=== PATIENT | male | born 1945 | race Caucasian/White ===

== ENCOUNTER 2025-04-07 22:49 | Inpatient (IN) | payer OTHER, SELFPAY ==
[2025-04-07] VITALS (10 sets, daily range): BP systolic 128–178; BP diastolic 83–147; BMI 27.3
[2025-04-07 17:18] LABS: Urine Character Clear (Clear)
[2025-04-07 17:29] LABS: Hematocrit 45.2 % (39.0-52.0); Hemoglobin 15.4 g/dL (13.0-18.0); Mean Corp Hgb Conc. 34.1 g/dL (33.0-37.0); Mean Corpuscular Volume 84.5 fL (80.0-94.0); Nucleated Red Blood Cells % 0 % (-); Red Cell Dist. Width 12.7 % (11.5-14.5)
[2025-04-07 17:32] LABS: Urine White Cell 0-2 /HPF (0-5)
[2025-04-07 17:33] LABS: Urine Red Blood Cell 0-2 /HPF (0-2)
[2025-04-07 17:37] LABS: ALT (SGPT) 18 U/L (0-50); AST (SGOT) 21 U/L (17-59); Albumin 4.3 g/dl (3.5-5.0); Alkaline Phosphatase 93 U/L (38-126); Blood Urea Nitrogen 20 mg/dl (9-20); Calcium 9.8 mg/dl (8.4-10.2); Carbon Dioxide 27 mmol/L (22-30); Chloride 107 mmol/L (98-107); Glucose 101 mg/dl (70-99); Lipase 179 U/L (23-300); Potassium 4.6 mmol/L (3.5-5.1); Sodium 141 mmol/L (135-145); Total Protein 7.2 g/dl (6.3-8.2); eGFR > 60.00
[2025-04-07 17:46] LABS: Platelet Count 180 10^3/uL (130-400)
--- NOTE | 2025-04-07 19:44 | ED.GENMED ---
History of Present Illness
<Shira Yadav NP - Last Filed: 04/08/25 00:27>
General
Chief Complaint: Abdominal Pain
Source: patient
Exam Limitations: none
Time Seen by Provider: 04/07/25 19:18
Nursing documentation reviewed up to this point in time: agreed with
History of Present Illness
History of Present Illness:
Patient to ED with complaint of right sided abd. pain. Pain started yesterday, continues today. Denies fever/chills,n/v/d. Brought to ED by spouse for eval.
Past History
<Shira Yadav NP - Last Filed: 04/08/25 00:27>
Past History
ED Past Medical History: Hypercholesterolemia, Psychiatric (Depression. PTSD) and Other ( Migraines, Prostatic hypertrophy)
ED Past Surgical History: Orthopedic (Bilateral knee surgery) and Other (partial prostatectomy )
Social History
Tobacco: Former smoker
Alcohol: Former
Drug: None
Personal:
Living: with family
Employment: Employed
Review of Systems
<Shira Yadav NP - Last Filed: 04/08/25 00:27>
Review of Systems
Allergies reviewed?: Yes
All Other Systems: ROS reviewed and negative except as documented in HPI and ROS
Constitutional: Reports no symptoms
EENT: Reports no symptoms
Respiratory: Reports no symptoms
Cardiac: Reports no symptoms
ABD/GI: Reports abdominal pain (right sided abd. pain)
: Reports no symptoms
Musculoskeletal: Reports no symptoms
Skin: Reports no symptoms
Neurological: Reports no symptoms
Psychiatric: Reports no symptoms
Phy Exam
<Shira Yadav NP - Last Filed: 04/08/25 00:27>
General Physical Exam
General Presentation: mild distress
General age: appears stated age
General Skin: warm and dry
General Habitus: normal
General Mental: alert
Cardiovascular Exam
Cardiovascular Exam: irregularly irregular
Pulmonary Exam
Pulmonary Exam: lungs clear, no respiratory distress and chest non tender
Gastrointestinal Exam
Gastrointestinal Exam: normal bowel sounds, non tender (No tenderness to palpation. States 'pain is inside'), soft, no organomegaly, no pulsatile mass and non distended
Musculoskeletal Exam
Musculoskeletal Exam: full ROM and neuro vasc intact
Skin Exam
Skin Exam: normal color, warm/dry and no rash
Psychiatric Exam
Psychiatric Exam: normal mood/affect
Course
<Shira Yadav NP - Last Filed: 04/08/25 00:27>
Orders/Labs/Results
Orders:
Orders
04/07/25 16:54
Complete Blood Count/With Diff Urgent
Comprehensive Metabolic Panel Urgent
Free T4 Urgent
Lactic Acid Urgent
Lipase Urgent
Magnesium Urgent
Comment: ADD ON
TSH Reflex To Free T4 Urgent
Comment: ADD ON
Urinalysis Reflex To Culture Urgent
Date Specimen was Collected: 04/07/25
Time Specimen was Collected: 16:44
Urine Microscopic Reflex Cult Urgent
Urine Culture Urgent
BECCA Source: U
Specimen Description:
Date Specimen was Collected: 04/07/25
Time Specimen was Collected: 16:44
04/07/25 19:35
CT Abd/pel Without Iv Or Oral Urgent
Comment:
Reason For Exam: RLQ pain
04/07/25 19:45
Add On- LAB Urgent
Tests Added?: magnesium
04/07/25 19:47
Electrocardiogram (*1) Urgent
Reason for Study: Palpitations
04/07/25 19:48
EKG- Treatment ONCE
04/07/25 20:47
Diltiazem HCl [Cardizem] 10 mg IV NOW STA
04/07/25 21:00
Diltiazem 125 mg/125 ml Nss [Cardizem] 125 mg in 125 ml IV PER PROTOCOL
Initial dose in mg/hr, then titrate:: 10
Titrate to keep:: Heart rate 80-100 bpm
Titrate by mg/hr:: 5 mg/hr
Frequency of titrations (minutes):: 15
Maximum dose in mg/hr:: 15
04/07/25 21:24
CR Chest - 2 Views Urgent
Comment:
Reason For Exam: cough
04/07/25 21:26
Azithromycin 500 mg/250 ml [Zithromax Infusion] 500 mg in 250 ml IV NOW
CefTRIAXone [Rocephin] 1,000 mg IV NOW STA
04/07/25 21:48
Add On- LAB Urgent
Tests Added?: TSH w/Reflex
04/07/25 22:10
Admit/Transfer Patient As Directed
Co-Sign Provider:
Level of Care: Inpatient admission
Assign to:: IMU- Intermediate Care
Physician / Group: Htay
Diagnosis: Pneumonia, A-Fib
Reason for Hospitalization: IV abx, Cardizem drip
Expected length of stay greater than two midnights?: Yes
ELOS- Estimated Length of Stay in days: 3
I certify the patient meets the requirements for IP care: Yes
PRN Pain Medication Management As Directed
May give lesser potent ordered pain med per pt: Yes
preference::
Protocol:: Medication orders for pain may be administered in a
manner that supports deferring to patient preference
when the pt is:
- Requesting an ordered lesser potent pain medication.
Least to most potent pain medications are defined
as: acetaminophen < NSAID < tramadol < opioids
(morphine, oxycodone, hydromorphone).
- Requesting a lesser dose of the same medication IF
ORDERED.
- Requesting a less intrusive route of administration
if both routes are prescribed by the provider (PO <
IV).
04/07/25 22:16
Code Status As Directed
Resuscitation Status: Full Code
04/07/25 22:22
Apixaban [Eliquis] 5 mg PO NOW STA
Abnormal Lab Results
04/07/25
16:54
WBC 10.9 H 10^3/uL
(4.8-10.8)
Absolute Neuts (auto) 8.1 H 10^3/uL
(1.4-6.5)
Absolute Monos (auto) 1.1 H 10^3/uL
(0.1-0.6)
Lymphocytes % 15.5 L %
(20.5-51.1)
Monocytes % 9.6 H %
(1.7-9.3)
Glucose 101 H mg/dl
(70-99)
TSH (Reflex) < 0.02 L uIU/ml
(0.47-4.68)
Urine Ketones 2+ A
(Negative)
Leukocyte Esterase Rfl 1+ A
(Negative)
Urine Bacteria (Reflex) Few A
(Negative)
Urine Albumin (Reflex) 2+ A
(Neg - Trace)
04/07/25 16:54
04/07/25 16:54
Vital Signs
Initial and Last Documented VS:
Initial Vital Signs
Temp Pulse Resp BP Pulse Ox
98.7 F 115 20 178/88 97
04/07/25 16:42 04/07/25 16:42 04/07/25 16:42 04/07/25 16:42 04/07/25 16:42
Last Documented Vital Signs
Temp Pulse Resp BP Pulse Ox
99.0 F 97 36 128/83 97
04/07/25 19:36 04/07/25 22:45 04/07/25 22:45 04/07/25 22:35 04/07/25 19:44
<Toribio Goncalves, DO - Last Filed: 04/07/25 22:03>
Orders/Labs/Results
Orders:
Orders
04/07/25 16:54
Complete Blood Count/With Diff Urgent
Comprehensive Metabolic Panel Urgent
Free T4 Urgent
Lactic Acid Urgent
Lipase Urgent
Magnesium Urgent
Comment: ADD ON
TSH Reflex To Free T4 Urgent
Comment: ADD ON
Urinalysis Reflex To Culture Urgent
Date Specimen was Collected: 04/07/25
Time Specimen was Collected: 16:44
Urine Microscopic Reflex Cult Urgent
Urine Culture Urgent
BECCA Source: U
Specimen Description:
Date Specimen was Collected: 04/07/25
Time Specimen was Collected: 16:44
04/07/25 19:35
CT Abd/pel Without Iv Or Oral Urgent
Comment:
Reason For Exam: RLQ pain
04/07/25 19:45
Add On- LAB Urgent
Tests Added?: magnesium
04/07/25 19:47
Electrocardiogram (*1) Urgent
Reason for Study: Palpitations
04/07/25 19:48
EKG- Treatment ONCE
04/07/25 20:47
Diltiazem HCl [Cardizem] 10 mg IV NOW STA
04/07/25 21:00
Diltiazem 125 mg/125 ml Nss [Cardizem] 125 mg in 125 ml IV PER PROTOCOL
Initial dose in mg/hr, then titrate:: 10
Titrate to keep:: Heart rate 80-100 bpm
Titrate by mg/hr:: 5 mg/hr
Frequency of titrations (minutes):: 15
Maximum dose in mg/hr:: 15
10/01/25 21:24
CR Chest - 2 Views Urgent
Comment:
Reason For Exam: cough
04/07/25 21:26
Azithromycin 500 mg/250 ml [Zithromax Infusion] 500 mg in 250 ml IV NOW
CefTRIAXone [Rocephin] 1,000 mg IV NOW STA
04/07/25 21:48
Add On- LAB Urgent
Tests Added?: TSH w/Reflex
04/07/25 22:10
Admit/Transfer Patient As Directed
Co-Sign Provider:
Level of Care: Inpatient admission
Assign to:: IMU- Intermediate Care
Physician / Group: Lesleyy
Diagnosis: Pneumonia, A-Fib
Reason for Hospitalization: IV abx, Cardizem drip
Expected length of stay greater than two midnights?: Yes
ELOS- Estimated Length of Stay in days: 3
I certify the patient meets the requirements for IP care: Yes
PRN Pain Medication Management As Directed
May give lesser potent ordered pain med per pt: Yes
preference::
Protocol:: Medication orders for pain may be administered in a
manner that supports deferring to patient preference
when the pt is:
- Requesting an ordered lesser potent pain medication.
Least to most potent pain medications are defined
as: acetaminophen < NSAID < tramadol < opioids
(morphine, oxycodone, hydromorphone).
- Requesting a lesser dose of the same medication IF
ORDERED.
- Requesting a less intrusive route of administration
if both routes are prescribed by the provider (PO <
IV).
04/07/25 22:16
Code Status As Directed
Resuscitation Status: Full Code
04/07/25 22:22
Apixaban [Eliquis] 5 mg PO NOW STA
Abnormal Lab Results
04/07/25
16:54
WBC 10.9 H 10^3/uL
(4.8-10.8)
Absolute Neuts (auto) 8.1 H 10^3/uL
(1.4-6.5)
Absolute Monos (auto) 1.1 H 10^3/uL
(0.1-0.6)
Lymphocytes % 15.5 L %
(20.5-51.1)
Monocytes % 9.6 H %
(1.7-9.3)
Glucose 101 H mg/dl
(70-99)
TSH (Reflex) < 0.02 L uIU/ml
(0.47-4.68)
Urine Ketones 2+ A
(Negative)
Leukocyte Esterase Rfl 1+ A
(Negative)
Urine Bacteria (Reflex) Few A
(Negative)
Urine Albumin (Reflex) 2+ A
(Neg - Trace)
04/07/25 16:54
04/07/25 16:54
Vital Signs
Initial and Last Documented VS:
Initial Vital Signs
Temp Pulse Resp BP Pulse Ox
98.7 F 115 20 178/88 97
04/07/25 16:42 04/07/25 16:42 04/07/25 16:42 04/07/25 16:42 04/07/25 16:42
Last Documented Vital Signs
Temp Pulse Resp BP Pulse Ox
99.0 F 97 36 128/83 97
04/07/25 19:36 04/07/25 22:45 04/07/25 22:45 04/07/25 22:35 04/07/25 19:44
<Shira Yadav NP - Last Filed: 04/08/25 00:27>
*Radiology
Radiology exam reviewed: radiology read reviewed
*Pulse Oximetry
SaO2: 97
Oxygen Mode of Delivery: Room air
Patient hypoxic: no
<Toribio Goncalves DO - Last Filed: 04/07/25 22:03>
*Critical Care Note
Total Time (30-74mins, 75-104mins- exclusive of procedures): 32
comment:
Critical care statement: A total of 32 minutes of critical care time was provided for this patient. This includes management of unstable vital signs, evaluation of the patient at bedside, reviewing the patient's pertinent medical records, discussion
with consultants, review of old EKGs and review of pertinent medical records. This time with separate from time utilized to perform the aforementioned documented procedures
<Shira Yadav TELEPHONE INFORMATION CLERK - Last Filed: 04/08/25 00:27>
Update Note
Update Note:
Patient to ED with right sided abd. pain Pain started yesterday, No pain to palpation, states pain is 'inside'. On arrival to ED, HR noted to be irregular and in the 140's. EKG confirms Afib. He reports afib approx 2 years ago. He was placed
on cardizem and eliquis at that time. He reports he followed up with cardiology initially but then stopped. He is no longer taking cardizem or eliquis. Unknown when this episode of afib started. He denies SOB or cough. Given 10mg IV cardizem
one time dose and then placed on cardizem drip. ABd. CT report reviewed. No abdminal findings. Ground glass opacity RLL concerning for pneumonia. Discussed findings with him. Will start ceftriaxone and azithromycin, admit to hospitalist. Case
discussed with Dr. Goncalves who also evaluated this patient. He [facility] findings and plan.
ED Attending Note
<Shira Yadav NP - Last Filed: 04/08/25 00:27>
-
Portions of this chart may have been created with voice recognition software.� Occasional wrong word or��sound alike� substitutions may have occurred due to the inherent limitations of voice recognition software.
<Toribio Goncalves DO - Last Filed: 04/07/25 22:03>
ED Attending Note
Patient seen and examined by attending physician: Yes
ED Attending Note:
I reviewed and agree with history and treatment plan by Shira Yadav. My exam revealed 79-year-old male with irregular heart rhythm, initially tachycardic. Now controlled with diltiazem. Chest x-ray and CT abdomen pelvis consistent with right
lower lung pneumonia. Treat with Rocephin and azithromycin admit to hospitalist.
Discharge Plan
Departure
Patient Disposition: Admit
Date of Disposition: 04/07/25
Time of Disposition: 21:39
Presentation/result/management discussed w/ accepting MD/DO: Hospitalist
Patient with high blood pressure during this ER visit?: No
Condition: Fair
Covid-19: Not Applicable
Discharge Problem:
A-fib, Pneumonia
Interventions
Interventions:
*Risk Screen - Suicide Last Done: 04/07/25 19:39
*General Assessment Last Done: 04/07/25 16:42
*Neglect/Abuse Screening Last Done: 04/07/25 19:39
*ED- Fall Risk Assessment Last Done: 04/07/25 19:39
*ED COVID-19 Vaccine History Last Done: 04/07/25 19:39
*ED Influenza Vaccine History Last Done: 04/07/25 19:39
NB-Uqjgfb-Eniqlksdgo Assessment Last Done: 04/07/25 19:37
[2025-04-07 20:56] LABS: Magnesium 1.8 mg/dl (1.6-2.3)
[2025-04-07] MEDS: CARDIZEM 125 IV (21:03)
[2025-04-07] MEDS: CARDIZEM 10 MG IV (21:03)
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
--- NOTE | 2025-04-07 21:45 | W.PN.UPDATE ---
Update Note
Progress Note Update
This note serves as an addendum to the H&P by regional office coordinator EVELIA�
Alexandra DIETERICK
HPI�
77M Former smoker, Former ETOH use disorder HX Prx AF, HLD, hyperthyroidism, BPH s/p partial prostatectomy reduction cystoplasty , depression /PTST seen at ER
- BiB spouse
- acute right sided abd. pain started yesterday, continues today.
- Denies fever/chills,n/v/d.
Non compliance with Eliquis , Methimazole for months
Relevant VS
04/07/25
16:42 04/07/25
19:35
Temp 98.7 F
Pulse 115 141
Resp Rate 20
Blood pressure 178/88
SaO2 97
Oxygen Mode of Delivery Room air
PE
GEN: No distress, awake, Ox3
HEENT: supple, anicteric, mmm
LUNGS: CTA, no wheezes/rales
CV: Irreg irreg, S1/S2, no murmur, rubs or gallops
ABD: soft, BS+, NT/ND
EXT: No edema, clubbing or cyanosis
NEURO: Gross non-focal
SKIN: No rash, warm, dry, pink
Relevant Data�
04/07/25
16:54
WBC 10.9 H
Creatinine 1.0
eGFR > 60.00
04/07/25
16:54
Urine Nitrite (Reflex) Negative
Urine RBC 0-2
Urine WBC (Reflex) 0-2
Pending EKG
Pending CXR
CT AP Without Iv Or Oral
- Mild pneumonia in the posterior right lung base with small effusion.
- The appendix is normal.
- Mild colonic fecal burden.
- No bowel obstruction.
- No obstructive uropathy.
01/28/2023 TTE:
EF 50-55%, mlid cLVH, mild AI, mildly dilated Ao root. Ao Sinus Diam 3.5 cm, Ao STJ Diameter 3.8 cm, Asc Ao Diam 4.2 cm -the aortic arch is normal in caliber.
Last hospitalist admission: Date of Admission: 01/27/23 - Date of Discharge: 01/28/23
DC DX: Hyperthyroidism, Atrial Fibrillation Rapid Ventricular Rate, Hematuria, Urinary Tract Infection due to Pseudomonas
ASSESSMENT & PLAN
Non compliance with Eliquis , Methimazole for months
- He decided to stop taking it for few months
- Case I dw patient and spouse - both are already decided to resume Eliquis, Methimazole
PNA @ post R Lung base plus SIRS ( WCC > 10, HR > 90)
Presumed sepsis due to presumed CAP
- c/w IV CFTZ and PO Doxy
- await CXR
- F/U T and WCC
Fast AF in setting of sepsis
HX Prx AF - on Eliquis and PO Diltiazem
- Resume PO Eliquis
- on Diltiazem gtt
- DCA card consult
Hyperthyroid
- Non adherence to Methimazole - will resume
- TSH pending
DVT Px: chr Eliquis
Full code
Ip TLM
[2025-04-07] MEDS: ELIQUIS 5 MG PO (22:40)
[2025-04-07] MEDS: ROCEPHIN 1000 MG IV (23:21)
[2025-04-07] MEDS: ZITHROMAX INFUSION 250 IV (23:32)
[2025-04-08] VITALS (12 sets, daily range): BP systolic 121–166; BP diastolic 78–101; BMI 29.1; BMI 26.4
[2025-04-08] MEDS: TYLENOL 650 MG PO ×4 (02:59→21:00)
[2025-04-08 07:04] LABS: Blood Urea Nitrogen 18 mg/dl (9-20); Calcium 9.1 mg/dl (8.4-10.2); Carbon Dioxide 24 mmol/L (22-30); Chloride 107 mmol/L (98-107); Estimated Creatinine Clearance 68 ml/min; Glucose 133 mg/dl (70-99); Magnesium 1.9 mg/dl (1.6-2.3); Potassium 4.5 mmol/L (3.5-5.1); Sodium 136 mmol/L (135-145); eGFR > 60.00
[2025-04-08 07:10] LABS: Hematocrit 40.9 % (39.0-52.0); Hemoglobin 14.1 g/dL (13.0-18.0); Mean Corp Hgb Conc. 34.5 g/dL (33.0-37.0); Mean Corpuscular Volume 85.6 fL (80.0-94.0); Platelet Count 159 10^3/uL (130-400); Red Cell Dist. Width 12.7 % (11.5-14.5)
[2025-04-08] MEDS: MUCINEX 600 MG PO ×2 (08:23→21:01)
[2025-04-08] MEDS: VIBRAMYCIN 100 MG PO ×2 (08:24→21:01)
[2025-04-08] MEDS: MIRALAX 17 GRAMS PO (08:25)
[2025-04-08] MEDS: TAPAZOLE 5 MG PO (08:25)
[2025-04-08] MEDS: CARDIZEM CD 120 MG PO (08:29)
[2025-04-08] MEDS: ELIQUIS 5 MG PO ×2 (08:29→21:01)
--- NOTE | 2025-04-08 09:00 | CON.CAR ---
Addendum entered and electronically signed by Giovanni Ontiveros MD 04/08/25 18:23:
I saw and examined the patient.
The Start Up Specialist's note was reviewed and I agree with the note.
Comment:
GEN: No distress, awake, Ox3
HEENT: supple, anicteric, mmm
LUNGS: CTA, no wheezes/rales
CV: Irreg, S1/S2, 1/6 syst LSB, no gallop
ABD: soft, BS+, NT/ND
EXT: No edema
NEURO: Gross non-focal
SKIN: No rash
PLan:
79-year-old male well-known to me with past medical history of hypertension, paroxysmal atrial fibrillation, hyperlipidemia who was last seen in the office in 2022 presents with right sided abdominal pains and possible pneumonia with recurrent
atrial fibrillation with rapid ventricular rate. In the past the patient had declined Eliquis, metoprolol and had also recently stopped his methimazole for hyperthyroidism.
I had a lengthy discussion with him regarding his medications and symptoms. He is now agreeable to restart the methimazole, Toprol, and Eliquis.
Continue antibiotics for possible pneumonia.
We will repeat his echocardiogram reevaluate his LVEF and valves.
We discussed the importance of compliance and risk of stroke if he stops his medication.
Original Note:
Consultation
Consultation Request
Date/Time Consultation Performed: 04/08/25
Requesting Provider: Dr. Garcia
Performing Provider: Beverly Lancaster PA-C for Dr. Ontiveros
Reason for Consultation: afib
Medical History
-
Chief Complaint: abd pain
History of Present Illness:
Patient is an 79-year-old male with past medical history of hyperthyroidism, hypertension, hyperlipidemia, paroxysmal atrial fibrillation who historically has not wanted any medications. He presented to ER with complaints of right sided abdominal
pain. He underwent CT of the abdomen and pelvis which did not show any acute abnormalities. He was noted to be in A-fib with RVR and on checking his thyroid function is noted to be hyperthyroid. There was also concern by imaging for possible
pneumonia. Cardiology consulted for evaluation and treatment of atrial fibrillation with RVR. He denies palpitations and states he has never been able to tell when he is in A-fib
PMH:
Paroxysmal atrial fibrillation
Hyperthyroidism
Hypertension
Hyperlipidemia
Medication noncompliance
Past Medical History
Past Medical History: Other (in HPI)
Social History
Tobacco: Non-Smoker
Alcohol: None
Personal:
Living: With Family
Employment: Retired
Family History
Family History: Reviewed & Not Pertinent
Allergies / Home Medications
Allergy/AdvReac Type Severity Reaction Status Date / Time
No Known Allergies Allergy Verified 04/07/25 16:42
�Medication �Instructions �Recorded �Confirmed �Type
No Meds [No Current Medications] 04/07/25 04/07/25 History
Review of Systems
-
History Source: Patient
All other systems: Negative unless noted
Physical Exam
Vital Signs
Temp Pulse Resp BP Pulse Ox
98.5 F 66 26 121/85 99
04/08/25 01:47 04/08/25 06:00 04/08/25 06:00 04/08/25 06:00 04/08/25 06:25
Lab Results
04/08/25 06:20
04/08/25 06:20
Physical Exam
General: Other (Nauseous)
HEENT: Normocephalic, Anicteric and Moist Mucous Membranes
Respiratory: Clear and Non Labored Respirations
Cardiac: S1/S2 and Irregular Rhythm
GI: Soft, Non Tender, Non Distended and Normal Bowel Sounds
Musculoskeletal: No Clubbing, No Cyanosis and No Edema
Skin: Warm and Dry
Neuro: AO x 3
Impression / Plan
-
Primary Sugar Trucker: Dr. Ontiveros, last seen 2022
Assessment:
Presentation with R abd pain
Nausea/dry heaving, suspected med related
Paroxysmal atrial fibrillation
Hyperthyroidism
Hypertension
Hyperlipidemia
Medication noncompliance
Echo 01/24/2023: EF 50 to 55%, mild concentric LVH, mild AR, mildly dilated aortic root
Plan:
- Patient presents with right-sided abdominal pain, etiology unknown
- This morning main complaint is nausea/dry heaving which is suspected to be medication related, as has happened twice after taking meds per patient. He reports he also has not eaten much which may be contributing. QTc stable for antiemetics if
needed by review of EKG
- found to be in afib with RVR, unknown duration as asymptomatic. suspected triggered by untreated hyperthyroidism
- discussed importance of medication compliance moving forward
- presently back on po cardizem and eliquis
- plan for rate control strategy until underlying hyperthyroid state treated, on methimazole
- we also briefly discussed ablation as a possibility if patient is resistent to [facility] medical therapy for afib
- chest imaging reviewed, with possible PNA and trace-small R pleural effusion. check proBNP in setting of rapid afib of unknown duration
- check echo, last from 2022 as above
- d/w nursing
Data Reviewed
-
EKG: Tracing Personally Visualized and interpreted
Radiology: Report Reviewed by me
CT Scan: Report Reviewed by me
Medical Tests (Nuc Med, Echo etc): Report Reviewed by me
Labs: Labs Reviewed by me
Old Records: Reviewed
--- NOTE | 2025-04-08 09:30 | W.PN.HOSP.TC ---
Today's Communication/Plan
-
plan reviewed with attending
Downgrade to tele
continue abx
bowel regimen
speech eval
restart home eliquis, methimazole. PO diltiazem
Assessment / Plan
Assessment / Plan
79yoM PMH hyperthyroidsim, paroxysmal afib, BPH s/p prostatectomy, MDD/PTSD presenting with pneumonia causing pain, nausea, vomiting.
AFVSS. Rate controlled afib, transitioned diltiazem drip to PO, pt vomited morning meds so unsure status. TSH low, T4 elevated- known hyperthyroidism, pt reports nonadherence to medications. Known afib, pt stopped taking eliquis. Now on abx.
Cardiology consulted. UC pending, sputum culture pending. Urianting appropraitely denying pain. Pt reports continued pain 'under the right ribs.' Constipation- pt reports BM but smaller than usual. Leukocytosis WBC 12.3. CT: RLL pneumonia
Discussed w patient important of medication adherence. He stated he spoke with his who had a van discussion regarding his future adherence. Continue monitoring pneumonia and managing pain. Restart home medications.
Downgrade to tele
#pneumonia
- Ceftriaxone, azithromycin transtioned to doxycylcine
- RLL on CT
- Spitting up phelgm
#nausea and vomiting
- Concern swallowing phlegm
- Swallowing eval
- Zofran
#Hyperthyroidism
- restarted home methimazole pt was not taking
#Paroxsymal afib
- transition to PO diltiazem
- eliquis restarted
- cardiology following
#constipation
- methimazole started, might be associated
- bowel reigmen started
Anticipated Discharge: Within 24 hours
Subjective/Interval History
-
Date of Service: April 08, 2025
79yoM PMH hyperthyroidism, paroxysmal afib, BPH s/p prostatectomy, MDD/ PTSD presenting with abdominal pain, nausea, vomiting.
He reports nausea, constipation, vomiting last night, none this morning until after taking meds. Pt reports pain under his R rib, sharp pains with deep breaths. He is hunched over, reporting moving/looking up makes pain worse. Pt reports having this
pain for almost a month, ignoring it until it became this bad. He has constipation, having BM but smaller than usual.
Pt reports stopping his meds after each hospitalization after a few months since he perceives himself to be healthy and a 'strong man' that does not need to take medications for afib, hyperthyroidism. He stated his had a discussion with him
already regarding this behavior.
Former smoker and alcohol use.
Objective Data
-
Labs:
Laboratory Results
04/08/25
06:20
WBC 12.3 H
Hgb 14.1
Hct 40.9
Plt Count 159
Sodium 136
Potassium 4.5
Chloride 107
Carbon Dioxide 24
BUN 18
Creatinine 0.9
Glucose 133 H
Calcium 9.1
Vital Signs:
Vital Signs
Temp Pulse Resp BP Pulse Ox
98.7 F 66 26 121/85 99
04/08/25 07:02 04/08/25 06:00 04/08/25 06:00 04/08/25 06:00 04/08/25 06:25
Physical Exam
-
General: Well Developed, Well Nourished and Pain (hunched over)
HEENT: Normocephalic, Atraumatic, Moist Mucous Membranes and Anicteric
Respiratory: Non Labored Respirations and Decreased Breath Sounds (R side)
Cardiac: S1/S2 and Irregular Rhythm (afib)
GI: Soft, Nontender and Nondistended
Musculoskeletal: Edema, Right Lower Extrem (cold, blue, edematous, pt reports at baseline since ankle surgery 60 years ago)
--- NOTE | 2025-04-08 12:59 | CM ---
Met with patient at bedside
IMM benefit explained; form dated/timed @ 1250
Pharmacy verified; [facility] @ [address] [facility]
Lives w/ ; multilevel home; no steps to enter; 12 steps between floors; railing on stairs
PLOF: was independent with ambulation, stairs, and ADLs; drives; works display department manager; no DME
NO SNF or Home Health utilization history
will transport home
Plan: Discharge to home; no needs anticipated
--- NOTE | 2025-04-08 13:27 | PTCARENOTE ---
pt transferred on tele to 415.2. Report given to LUCIEN Lockhart. all belongings with patient.
[2025-04-08] MEDS: LR 1000 IV (17:37)
[2025-04-08] MEDS: STERILE WATER FOR INJECTION 10 ML IV (23:11)
[2025-04-08] MEDS: ROCEPHIN 1000 MG IV (23:12)
[2025-04-09 02:51] VITALS: BP 152/91
[2025-04-09] MEDS: LR 1000 IV ×2 (04:16→20:28)
--- NOTE | 2025-04-09 07:21 | W.PN.HOSP.TC ---
Today's Communication/Plan
-
Plan reviewed with attending
Pulm consult
Consider broadening abx, worsening leukocytosis, hemoptysis
Assessment / Plan
Assessment / Plan
79yoM PMH hyperthyroidsim, paroxysmal afib, BPH s/p prostatectomy, MDD/PTSD presenting with pneumonia causing pain, nausea, vomiting.
AFVSS. Rate controlled afib, transitioned diltiazem drip to PO, pt vomited morning meds so unsure status. TSH low, T4 elevated- known hyperthyroidism, pt reports nonadherence to medications. Known afib, pt stopped taking eliquis. Now on abx.
Cardiology consulted. UC pending, sputum culture pending. Urinating appropriately denying pain. Pt reports continued pain 'under the right ribs.' Constipation- pt reports BM but smaller than usual. Leukocytosis WBC 12.3. CT: RLL pneumonia
Discussed w patient important of medication adherence. He stated he spoke with his who had a van discussion regarding his future adherence. Continue monitoring pneumonia and managing pain. Restart home medications.
AFVSS, still in afib. Pt is having continued SOB and rib pain, now having mild hemoptysis. Recently restarted on eliquis. Worsening leukocytosis and symptoms on current abx. Plan to broaden abx, sputum culture, MRSA swab to evaluate for resistant
strains.
#pneumonia
#hemoptysis
- Ceftriaxone, azithromycin transitioned to doxycycline. Planning on broadening per pulm recs.
- RLL on CT
- Spitting up phelgm
- MRSA swab pending
- Consult pulm
#nausea and vomiting
- Concern swallowing phlegm
- Swallowing eval
- Zofran
#Hyperthyroidism
- restarted home methimazole pt was not taking
#Paroxsymal afib
- transition to PO diltiazem
- eliquis restarted
- cardiology following
#constipation
- methimazole started, might be associated
- bowel reigmen started
Anticipated Discharge: 24 - 48 hours
Subjective/Interval History
-
Date of Service: April 09, 2025
Pt reports continued SOB, pain with deep respirations. SOB at rest, improvement laying down. Continued sputum production, now with blood streaks. Pt reports tylenol relieves the pain when he takes it.
Intermittent fever, spiked on yesterday. Pt denies recent travel, tick bites, or nature hikes.
Objective Data
-
Labs:
Laboratory Results
04/09/25 04/09/25
07:00 07:20
WBC Pending
Hgb Pending
Hct Pending
Plt Count Pending
Sodium Pending
Potassium Pending
Chloride Pending
Carbon Dioxide Pending
BUN Pending
Creatinine Pending
Glucose Pending
Calcium Pending
Total Bilirubin Pending
AST Pending
ALT Pending
Alkaline Phosphatase Pending
Vital Signs:
Vital Signs
Temp Pulse Resp BP Pulse Ox
98.9 F 95 18 152/91 96
04/09/25 02:51 04/09/25 02:51 04/09/25 02:51 04/09/25 02:51 04/09/25 02:51
I&O
04/08/25 04/09/25 04/10/25
06:59 06:59 06:59
Intake Total 120 / 120
Output Total 300 / 300
Balance -180 / -180
Physical Exam
-
General: Well Developed, Well Nourished and Pain
HEENT: Normocephalic, Atraumatic and Moist Mucous Membranes
Respiratory: Crackles (R) and Non Labored Respirations
Cardiac: S1/S2 and Irregular Rhythm (afib w RVR)
GI: Soft, Nontender and Nondistended
Musculoskeletal: No Edema
Skin: Warm and Dry
Neuro: AO x 3, Nonfocal/Grossly Intact and No Sensory Deficits
Psych: Calm
[2025-04-09 07:25] VITALS: BP 150/95
[2025-04-09 08:10] LABS: Hematocrit 42.7 % (39.0-52.0); Hemoglobin 14.6 g/dL (13.0-18.0); Mean Corp Hgb Conc. 34.2 g/dL (33.0-37.0); Mean Corpuscular Volume 85.6 fL (80.0-94.0); Nucleated Red Blood Cells % 0 % (-); Platelet Count 169 10^3/uL (130-400); Red Cell Dist. Width 12.7 % (11.5-14.5)
[2025-04-09 09:03] LABS: ALT (SGPT) 16 U/L (0-50); AST (SGOT) 20 U/L (17-59); Albumin 3.6 g/dl (3.5-5.0); Alkaline Phosphatase 86 U/L (38-126); Blood Urea Nitrogen 16 mg/dl (9-20); Calcium 9.3 mg/dl (8.4-10.2); Carbon Dioxide 24 mmol/L (22-30); Chloride 104 mmol/L (98-107); Estimated Creatinine Clearance 83 ml/min; Glucose 111 mg/dl (70-99); Potassium 4.3 mmol/L (3.5-5.1); Sodium 136 mmol/L (135-145); Total Protein 6.5 g/dl (6.3-8.2); eGFR > 60.00
[2025-04-09] MEDS: MUCINEX 600 MG PO ×2 (09:42→20:38)
[2025-04-09] MEDS: TAPAZOLE 5 MG PO (09:42)
[2025-04-09] MEDS: VIBRAMYCIN 100 MG PO ×2 (09:42→20:38)
[2025-04-09] MEDS: CARDIZEM CD 240 MG PO (09:42)
[2025-04-09] MEDS: ELIQUIS 5 MG PO ×2 (09:42→20:37)
[2025-04-09] MEDS: MIRALAX 17 GRAMS PO (09:43)
[2025-04-09] MEDS: CARDIZEM CD PO (10:46)
--- NOTE | 2025-04-09 10:49 | PTOTSP ---
Dysphagia Evaluation:
Pt presents w/ acute risk factors for dysphagia/aspiration given impaired respiratory status with current RLL PNA. Pt has baseline cough, suspect from PNA. No overt s/sx of aspiration during bedside swallow evaluation. Coughing episode observed
after P.O. trials, however pt reported unrelated. Suspect GI component given frequent belching following ingestion of thin liquids and pt reported stasis sensation w/ breads. Despite CXR showing RLL pneumonia, pt with tolerance of PO at bedside, no
dysphagia hx, and remains on room air.
Recommendations:
1. Regulars, Thins w/ pt preferring softer foods.
2. Medications as best tolerated.
3. Partial assistance/supervision
4. Strategies: Small sips/bites, slow rate, limit distractions, alternating liquid washes, sitting upright w/ meals
5. F/U w/ ST to observe diet-level tolerance and monitor pt presentation
[2025-04-09 11:15] VITALS: BP 148/84
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
[2025-04-09] MEDS: TYLENOL 650 MG PO (12:23)
--- NOTE | 2025-04-09 13:40 | CM ---
Chart reviewed. Care ongoing
Pt current w/ PNA, currently on IV abx, cont monitoring for potential abx adjustment
A-fib, cardiology consult
Plan: Home when stable. No needs anticipated
--- NOTE | 2025-04-09 14:47 | W.PN.CARDCBS ---
Addendum entered and electronically signed by Sergio Vila MD 04/09/25 18:44:
Patient admitted with complaints of right sided abdominal pain, noted to be in A-fib with rapid ventricular response, also with suspected pneumonia.
PMH: PAF, hyperthyroidism, hypertension, hyperlipidemia, medication noncompliance
Current medications: IV diltiazem, currently on hold, doxycycline, Mucinex, polyethylene, apixaban 5 mg twice daily, methimazole 5 mg daily, diltiazem CD2 140 mg a day, metoprolol tartrate 25 mg twice daily, Maxipime
132/80, pulse 89, respiratory rate 18, afebrile,, diminished breath sounds right greater than left with few crackles, tachycardic, regular rate and rhythm, no obvious murmurs, abdomen benign extremities without clubbing cyanosis or edema
White count 15.9, hemoglobin 14.6, BUN/creatinine 16 and 0.8, potassium 4.3, bilirubin 1.8
Assessment:
Presentation with R abd pain
Nausea/dry heaving, suspected med related
Paroxysmal atrial fibrillation
afob with RVR
Hyperthyroidism
Hypertension
Hyperlipidemia
Medication noncompliance
Plan:
Continue rate control
Continue apixaban
Continue methimazole to maintain euthyroid state
Continue diltiazem and carvedilol
Original Note:
Today's Communication / Plan
-
add metoprolol
check echo
Impression / Plan
-
Primary Prevention Coordinator: Dr. Ontiveros, last seen 2022
Assessment:
Presentation with R abd pain
Nausea/dry heaving, suspected med related
Paroxysmal atrial fibrillation
afob with RVR
Hyperthyroidism
Hypertension
Hyperlipidemia
Medication noncompliance
Echo 01/24/2023: EF 50 to 55%, mild concentric LVH, mild AR, mildly dilated aortic root
Plan:
Afib with RVR-
-telem reviewed afib with RVR with HRs to 140s. Currently on Diltiazem 240 mg daily. Will add Metoprolol tartrate 25 mg bid for rate control
-cont. Eliquis
-afib duration unknown and untreated hyperthyroidism thought to be a trigger
- plan for rate control strategy until underlying hyperthyroid state treated, on methimazole
-consider ablation as a possibility if patient is resistent to halfway medical therapy for afib
-proBNP 1340
-wt down 2 lbs overnight
-Check updated echocardiogram today
-consider diuretic
- d/w nursing
Progress Note - Prevention Coordinator
Subjective
Date of Service: April 09, 2025
remains in afib with rapid rates
Objective
Labs:
04/09/25 07:35
04/09/25 07:35
Labs
Hgb 14.6 g/dL (13.0-18.0) 04/09/25 07:35
Hct 42.7 % (39.0-52.0) 04/09/25 07:35
Plt Count 169 10^3/uL (130-400) 04/09/25 07:35
Sodium 136 mmol/L (135-145) 04/09/25 07:35
Potassium 4.3 mmol/L (3.5-5.1) 04/09/25 07:35
BUN 16 mg/dl (9-20) 04/09/25 07:35
Creatinine 0.8 mg/dL (0.7-1.3) 04/09/25 07:35
Glucose 111 mg/dl (70-99) H 04/09/25 07:35
Vital Signs and I&O:
Vital Signs
Temp Pulse Resp BP Pulse Ox
100.2 F 131 20 148/84 95
04/09/25 11:15 04/09/25 11:15 04/09/25 11:15 04/09/25 11:15 04/09/25 11:15
Vital Signs
Temp Pulse Resp BP Pulse Ox
100.2 F 131 20 148/84 95
04/09/25 11:15 04/09/25 11:15 04/09/25 11:15 04/09/25 11:15 04/09/25 11:15
Intake & Output
04/07/25 04/08/25 04/09/25 04/10/25
06:59 06:59 06:59 06:59
Intake Total 120 / 120
Output Total 300 / 300
Balance -180 / -180
Physical Exam
Physical Exam
GEN: No distress, awake, Ox3
HEENT: supple, anicteric, mmm
LUNGS: CTA, no wheezes/rales
CV: irreg, irreg 1/6 syst LSB, no murmur
ABD: soft, BS+, NT/ND
EXT: No edema
NEURO: Gross non-focal
SKIN: No rash
[2025-04-09 15:10] VITALS: BP 132/80
[2025-04-09 15:24] LABS: COVID-19 Antigen Negative (Negative)
[2025-04-09] MEDS: LOPRESSOR 25 MG PO ×2 (16:01→20:37)
[2025-04-09] MEDS: MAXIPIME 1000 MG IV (16:03)
[2025-04-09] MEDS: STERILE WATER FOR INJECTION 10 ML IV (16:03)
[2025-04-09] MEDS: LR IV (19:10)
[2025-04-09 19:39] VITALS: BP 144/69
[2025-04-09 23:01] VITALS: BP 149/80
[2025-04-10] VITALS (7 sets, daily range): BP systolic 130–164; BP diastolic 63–86; BMI 26.5
[2025-04-10] MEDS: MAXIPIME 1000 MG IV ×2 (04:58→17:11)
[2025-04-10] MEDS: STERILE WATER FOR INJECTION 10 ML IV ×2 (04:59→17:12)
[2025-04-10] MEDS: LR 1000 IV ×2 (05:03→21:49)
[2025-04-10 06:48] LABS: Hematocrit 40.0 % (39.0-52.0); Hemoglobin 13.6 g/dL (13.0-18.0); Mean Corp Hgb Conc. 34.0 g/dL (33.0-37.0); Mean Corpuscular Volume 85.7 fL (80.0-94.0); Platelet Count 173 10^3/uL (130-400); Red Cell Dist. Width 12.7 % (11.5-14.5)
[2025-04-10 07:08] LABS: Procalcitonin 0.13 ng/ml (0.0-0.25)
[2025-04-10 07:13] LABS: ALT (SGPT) 15 U/L (0-50); AST (SGOT) 17 U/L (17-59); Albumin 3.0 g/dl (3.5-5.0); Alkaline Phosphatase 71 U/L (38-126); Blood Urea Nitrogen 19 mg/dl (9-20); Calcium 8.8 mg/dl (8.4-10.2); Carbon Dioxide 26 mmol/L (22-30); Chloride 106 mmol/L (98-107); Estimated Creatinine Clearance 74 ml/min; Glucose 116 mg/dl (70-99); Potassium 4.3 mmol/L (3.5-5.1); Sodium 136 mmol/L (135-145); Total Protein 5.7 g/dl (6.3-8.2); eGFR > 60.00
--- NOTE | 2025-04-10 10:31 | W.PN.CARDCBS ---
Today's Communication / Plan
-
He had achieved good rate control on current medical therapy and more recently he has converted to sinus rhythm, sinus rhythm with ectopy. His symptoms have improved.
Maintain current rate control strategy
Maintain oral anticoagulation for atrial fibrillation related thromboembolic risk reduction
Additionally trance thoracic echocardiogram suggest interval ascending aortic enlargement.
Will check CT scan to get a better measurement/assessment of the ascending aorta.
Discussed with patient and his at bedside
Impression / Plan
-
Primary Stem Cleaning Machine Feeder: Dr. Ontiveros, last seen 2022
Assessment:
Presentation with R abd pain
Nausea/dry heaving, suspected med related
Paroxysmal atrial fibrillation
afob with RVR
Hyperthyroidism
Hypertension
Hyperlipidemia
Medication noncompliance
Echo 01/24/2023: EF 50 to 55%, mild concentric LVH, mild AR, mildly dilated aortic root
Echocardiogram April 09, 2025 shows normal left ventricular size and function ejection fraction of 55 to 60%, mildly enlarged left atrium, there is mild to moderate tricuspid regurgitation with estimated pulmonary artery pressure 42 mmHg. There is
moderately dilated ascending aorta at 4.8 cm,
Compared to echocardiogram from January 28, 2023, the ascending aorta has increased in size from 4.2 cm to 4.8 cm
Plan:
Afib with RVR in the setting of untreated hyperthyroidism
Rate control strategy now includes
Methimazole for management of hyperthyroidism
Diltiazem 240 mg daily
Metoprolol 25 mg twice daily
Rate control significantly improved on current medical therapy for rate control.
He has converted to sinus rhythm as well, now sinus rhythm with ectopy
Maintain Eliquis 5 mg twice daily for atrial fibrillation related thromboembolic risk reduction.
Long-term rhythm control strategy such as ablation can be considered as an outpatient
Echocardiogram finds increased size of ascending aorta.
Will check CT scan of the chest to get better measurement of the ascending aorta
Follow blood pressure closely as we have added metoprolol, goal systolic blood pressure will be 120 or less and goal diastolic blood pressure is 80 or less
May need additional antihypertensive drug therapy
Sepsis from community-acquired pneumonia management as per primary service.
Progress Note - Stem Cleaning Machine Feeder
Subjective
Date of Service: April 10, 2025
He denies chest pain shortness of breath palpitations or dizziness
Objective
Labs:
04/10/25 06:20
04/10/25 06:20
Labs
Hgb 13.6 g/dL (13.0-18.0) 04/10/25 06:20
Hct 40.0 % (39.0-52.0) 04/10/25 06:20
Plt Count 173 10^3/uL (130-400) 04/10/25 06:20
Sodium 136 mmol/L (135-145) 04/10/25 06:20
Potassium 4.3 mmol/L (3.5-5.1) 04/10/25 06:20
BUN 19 mg/dl (9-20) 04/10/25 06:20
Creatinine 0.9 mg/dL (0.7-1.3) 04/10/25 06:20
Glucose 116 mg/dl (70-99) H 04/10/25 06:20
Vital Signs and I&O:
Vital Signs
Temp Pulse Resp BP Pulse Ox
98.5 F 102 16 147/86 95
04/10/25 07:15 04/10/25 07:15 04/10/25 07:15 04/10/25 07:15 04/10/25 07:15
Vital Signs
Temp Pulse Resp BP Pulse Ox
98.5 F 102 16 147/86 95
04/10/25 07:15 04/10/25 07:15 04/10/25 07:15 04/10/25 07:15 04/10/25 07:15
Intake & Output
04/08/25 04/09/25 04/10/25 04/11/25
06:59 06:59 06:59 06:59
Intake Total 120 / 120 2580 / 2580
Output Total 300 / 300 1100 / 1100
Balance -180 / -180 1480 / 1480
Physical Exam
Physical Exam
Well-appearing, no acute distress
Regular with some ectopy. Normal S1 and S2, no S3 no S4 degree 1/6 apical holosystolic murmur no rubs
Lungs are clear to auscultation bilaterally no wheezes rales or rhonchi
Abdomen soft nontender nondistended with normoactive bowel
Extremities showed no clubbing or cyanosis there is trace pretibial edema bilaterally
--- NOTE | 2025-04-10 10:56 | W.PN.UPDATE ---
Update Note
Progress Note Update
I have independently evaluated the patient at the bedside. I have reviewed the case with the resident and agree with documentation unless otherwise specified.
AFVSS on room air with SpO2 99%. HR improved to near 100/min though still in AF. White cell count normalized with change antibiotics. Patient states that he visits a detention twice a week, does have history of Pseudomonas in urine
AO x 4, NAD. Irregularly irregular rhythm with tachycardia, no murmurs or gallops, normal S1 and 2. CTA bilaterally, nonlabored. Benign abdomen, skin warm and dry, palpable pulses, no edema. No FND
#Atrial fibrillation with RVR. Secondary to noncompliance and hyperthyroid state. Seems symptomatic with fatigue. Started on DOAC and now S/P diltiazem drip, continue with oral diltiazem 240 mg daily and DOAC. Continue to monitor on telemetry.
Consider DEREK�DCCV once infection resolves
#Sepsis secondary to community-acquired pneumonia. Concern for Pseudomonas involvement. Transition from IV ceftriaxone to IV cefepime as he does have risk factors for Pseudomonas involvement. White count now normalized and patient clinically
improved. Continue IV cefepime and azithromycin. Follow-up blood and sputum culture. Monitor SpO2, goal >90%.
#Minor hemoptysis. Suspect secondary to pneumonia, possibly necrotizing though underlying malignancy not excluded with smoking history. Will continue to monitor degree of hemoptysis. May need intubation if weight exceeds 400 mL per 24-hour period
or if he develops signs of distress. Continue with DOAC for now though low threshold to hold if worsening. Pulmonology appreciated
#Hyperthyroidism. Prescribed methimazole though noncompliant. Patient now amenable to regimen. Continue methimazole. Plan to repeat thyroid function test in 4 weeks as OP
Diet -- Sodium restricted
Thromboprophylaxis -- Eliquis
CODE STATUS -- Full
Disposition -- Expected discharge >48 hours
[2025-04-10] MEDS: LOPRESSOR 25 MG PO ×2 (11:13→21:47)
[2025-04-10] MEDS: VIBRAMYCIN 100 MG PO ×2 (11:13→21:47)
[2025-04-10] MEDS: MUCINEX 600 MG PO ×2 (11:14→21:47)
[2025-04-10] MEDS: CARDIZEM CD 240 MG PO (11:14)
[2025-04-10] MEDS: MIRALAX PO ×2 (11:14→11:16)
[2025-04-10] MEDS: ELIQUIS 5 MG PO ×2 (11:14→21:46)
[2025-04-10] MEDS: TAPAZOLE 5 MG PO (11:14)
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
--- NOTE | 2025-04-10 16:11 | W.PN.HOSP.TC ---
Today's Communication/Plan
-
continue Cefepime/Doxycycline
monitor hemoptysis
f/u sputum clutyure and MRSA swab
Assessment / Plan
Assessment / Plan
79yoM PMH hyperthyroidsim, paroxysmal afib, BPH s/p prostatectomy, MDD/PTSD presenting with pneumonia causing pain, nausea, vomiting.
AFVSS. Rate controlled afib, transitioned diltiazem drip to PO, pt vomited morning meds so unsure status. TSH low, T4 elevated- known hyperthyroidism, pt reports nonadherence to medications. Known afib, pt stopped taking eliquis. Now on abx.
Cardiology consulted. UC pending, sputum culture pending. Urinating appropriately denying pain. Pt reports continued pain 'under the right ribs.' Constipation- pt reports BM but smaller than usual. Leukocytosis WBC 12.3. CT: RLL pneumonia
Discussed w patient important of medication adherence. He stated he spoke with his who had a van discussion regarding his future adherence. Continue monitoring pneumonia and managing pain. Restart home medications.
AFVSS, still in afib. Pt is having continued SOB and rib pain, now having mild hemoptysis. Recently restarted on eliquis. Worsening leukocytosis and symptoms on current abx. Plan to broaden abx, sputum culture, MRSA swab to evaluate for resistant
strains.
#pneumonia- Community-acquired pneumonia suspected.
#hemoptysis Likely due to pneumonia
- Clinically improving on Cefepime/Doxycycline. WBC declining.
- RLL on CT
- Chest x-ray 04/07/2025: Right lower infiltrate noted.
Small right pleural effusion-possibly parapneumonic
Right-sided pleuritic type chest pain-likely pleuritis.
Former smoker
- Spitting up phelgm
- MRSA swab pending
- Consult pulm
#nausea and vomiting
- Concern swallowing phlegm
- Swallowing eval
- Zofran
#Hyperthyroidism
- restarted home methimazole pt was not taking
#Paroxsymal afib
- transition to PO diltiazem
- eliquis restarted
- cardiology following
#constipation
- methimazole started, might be associated
- bowel reigmen started
Anticipated Discharge: Within 24 hours
Subjective/Interval History
-
Date of Service: April 10, 2025
patient stated that his SOB still there with hemoptysis, and lower right abd pain when he sit or stand , last bowel movement 2 days ago and he slept well last night, no chest pain.
Objective Data
-
Labs:
Laboratory Results
04/10/25
06:20
WBC 10.7
Hgb 13.6
Hct 40.0
Plt Count 173
Sodium 136
Potassium 4.3
Chloride 106
Carbon Dioxide 26
BUN 19
Creatinine 0.9
Glucose 116 H
Calcium 8.8
Total Bilirubin 1.4 H
AST 17
ALT 15
Alkaline Phosphatase 71
Vital Signs:
Vital Signs
Temp Pulse Resp BP Pulse Ox
99.9 F 102 16 156/70 97
04/10/25 12:47 04/10/25 12:47 04/10/25 12:47 04/10/25 12:47 04/10/25 12:47
I&O
04/09/25 04/10/25 04/11/25
06:59 06:59 06:59
Intake Total 120 / 120 2580 / 2580
Output Total 300 / 300 1100 / 1100
Balance -180 / -180 1480 / 1480
Review of Systems
-
History Source: Patient
Respiratory: Reports Hemoptysis
Cardiac: Reports No Symptoms
Abdomen/GI: Reports Abdominal Pain
Genitourinary: Reports No Symptoms
Physical Exam
-
General: Well Developed, Well Nourished and Comfortable
Respiratory: Clear to Auscultation
Cardiac: Regular Rhythm and S1/S2
GI: Soft, Nontender and Nondistended
Neuro: Awake, Alert and Oriented
[2025-04-11 03:05] VITALS: BP 135/74
[2025-04-11] MEDS: STERILE WATER FOR INJECTION 10 ML IV ×2 (04:29→17:38)
[2025-04-11] MEDS: MAXIPIME 1000 MG IV ×2 (04:29→17:38)
[2025-04-11] MEDS: LR 1000 IV (04:33)
[2025-04-11 06:00] VITALS: BMI 26.6
[2025-04-11 06:06] LABS: Hematocrit 38.2 % (39.0-52.0); Hemoglobin 13.0 g/dL (13.0-18.0); Mean Corp Hgb Conc. 34.0 g/dL (33.0-37.0); Mean Corpuscular Volume 84.5 fL (80.0-94.0); Platelet Count 190 10^3/uL (130-400); Red Cell Dist. Width 12.5 % (11.5-14.5)
[2025-04-11 06:33] LABS: ALT (SGPT) 17 U/L (0-50); AST (SGOT) 18 U/L (17-59); Albumin 3.0 g/dl (3.5-5.0); Alkaline Phosphatase 83 U/L (38-126); Blood Urea Nitrogen 18 mg/dl (9-20); Calcium 8.7 mg/dl (8.4-10.2); Carbon Dioxide 24 mmol/L (22-30); Chloride 106 mmol/L (98-107); Estimated Creatinine Clearance 83 ml/min; Glucose 101 mg/dl (70-99); Potassium 3.8 mmol/L (3.5-5.1); Sodium 135 mmol/L (135-145); Total Protein 5.8 g/dl (6.3-8.2); eGFR > 60.00
[2025-04-11 07:15] VITALS: BP 150/85
--- NOTE | 2025-04-11 07:51 | PTCARENOTE ---
Incentive spirometer given to patient, patient using IS frequently throughout day.
--- NOTE | 2025-04-11 08:13 | W.PN.UPDATE ---
Addendum entered and electronically signed by Oscar Nuñez DO 04/11/25 10:05:
Clarification: Patient is on doxycycline 100 mg twice daily rather than azithromycin.
Original Note:
Update Note
Progress Note Update
I have independently evaluated the patient at the bedside. I have reviewed the case with the resident and agree with documentation unless otherwise specified.
AFVSS. Converted to NSR yesterday, HR in the 80s this morning. States he feels better, denies any new complaints
AO x 4, NAD. RRR, no murmurs or gallops, normal S1 and 2. CTA bilaterally, nonlabored. Benign abdomen, skin warm and dry, palpable pulses, no edema. No FND
#Paroxysmal atrial fibrillation with RVR. Secondary to noncompliance and hyperthyroid state. Started on DOAC and now S/P diltiazem drip. Continue with oral diltiazem 240 mg daily, metoprolol tartrate 25 mg twice daily, and DOAC. Continue to
monitor on telemetry.
#Sepsis secondary to community-acquired pneumonia. Concern for Pseudomonas involvement. Clinical improvement and resolution of leukocytosis with transition from ceftriaxone to cefepime. Plan to transition IV cefepime and azithromycin to oral
Levaquin to complete 7 total days of therapy, will discuss with pulmonology. Follow-up blood and sputum culture. Monitor SpO2, goal >90%.
#Minor hemoptysis. Suspect secondary to pneumonia, possibly necrotizing pneumonia though underlying malignancy not excluded with smoking history. Will continue to monitor degree of hemoptysis. May need intubation if weight exceeds 400 mL per
24-hour period or if he develops signs of distress. Continue with DOAC for now though low threshold to hold if worsening. Pulmonology appreciated
#Hyperthyroidism. Prescribed methimazole though noncompliant. Patient now amenable to regimen. Continue methimazole. Plan to repeat thyroid function test in 4 weeks as OP
#Ascending TAA. CT yesterday demonstrated 4.9 cm dilation of the ascending aorta. Continue with blood pressure control and rate control of AF. Will need serial TTE's or CT as OP to monitor. May need cardiothoracic surgery follow-up at discharge
Diet -- Sodium restricted
Thromboprophylaxis -- Eliquis
CODE STATUS -- Full
Disposition -- Expected discharge within 24 hours
--- NOTE | 2025-04-11 09:51 | W.PN.HOSP.TC ---
Today's Communication/Plan
-
Continue diltiazem and metoprolol
Continue eliquist
Continue Doxycycline and cefepime
Chest x ray tomorrow
Levaquin to complete 7 total days of therapy at discharge , will discuss with pulmonology
Assessment / Plan
Assessment / Plan
79yoM PMH hyperthyroidsim, paroxysmal afib, BPH s/p prostatectomy, MDD/PTSD presenting with pneumonia causing pain, nausea, vomiting.
AFVSS. Rate controlled afib, transitioned diltiazem drip to PO, pt vomited morning meds so unsure status. TSH low, T4 elevated- known hyperthyroidism, pt reports nonadherence to medications. Known afib, pt stopped taking eliquis. Now on abx.
Cardiology consulted. UC pending, sputum culture pending. Urinating appropriately denying pain. Pt reports continued pain 'under the right ribs.' Constipation- pt reports BM but smaller than usual. Leukocytosis WBC 12.3. CT: RLL pneumonia
Discussed w patient important of medication adherence. He stated he spoke with his who had a van discussion regarding his future adherence. Continue monitoring pneumonia and managing pain. Restart home medications.
AFVSS, still in afib. Pt is having continued SOB and rib pain, now having mild hemoptysis. Recently restarted on eliquis. Worsening leukocytosis and symptoms on current abx. Plan to broaden abx, sputum culture, MRSA swab to evaluate for resistant
strains.
#pneumonia- Community-acquired pneumonia suspected.
#hemoptysis Likely due to pneumonia
- Clinically improving on Cefepime/Doxycycline. WBC declining.
- RLL on CT
- Chest x-ray 04/07/2025: Right lower infiltrate noted.
Small right pleural effusion-possibly parapneumonic
Right-sided pleuritic type chest pain-likely pleuritis.
Former smoker
- Spitting up phelgm
- MRSA swab negative
-blood culture NGTD
- Sputum with normal imrta
- pulm following
CT of the chest 04/10/2025
-MODERATE RIGHT LOWER LOBE PNEUMONIA which has markedly increased since 04/07/2025.
-Mild pneumonia in the lateral segment of the right middle lobe.
-SMALL RIGHT PARAPNEUMONIC PLEURAL EFFUSION.
-Mild to moderate cardiomegaly.
-Fusiform ascending thoracic aortic aneurysm (4.9 cm diameter).
-Multinodular thyroid goiter.
-Small hiatal hernia.
#nausea and vomiting
- Concern swallowing phlegm
- Swallowing eval
- Zofran
#Hyperthyroidism
- restarted home methimazole pt was not taking
#Paroxsymal afib
- in the setting of untreated hyperthyroidism
- cardiology following
-Rate control
- Methimazole for management of hyperthyroidism
-Diltiazem 240 mg daily
-Metoprolol 25 mg twice daily
-Eliquis 5mg bid for AF
-Long-term rhythm control strategy such as ablation can be considered as an outpatient .
#Ascending TAA
-Echocardiogram finds increased size of ascending aorta ,CT of the chest recommended
-CT chest 04/10/2025 demonstrated 4.9 cm dilation of the ascending aorta
-Continue with blood pressure control and rate control of AF
-Serial TTE's or CT as OP to monitor
-May need cardiothoracic surgery follow-up at discharge
#Hypertension
- cardiology following
- currently on Diltiazem and Metoprolol
- the goal is 120/80 or less
- May need additional antihypertensive drug therapy if higher than the goal
#constipation
- methimazole started, might be associated
- continue bowel regimen
Diet -- Sodium restricted
Thromboprophylaxis -- Eliquis
CODE STATUS -- Full
Anticipated Discharge: 24 - 48 hours
Subjective/Interval History
-
Date of Service: April 11, 2025
Patient shortness of breath improving since yesterday, no chest pain and still has hemoptysis. Currently on room air-able to speak in full sentences.
Objective Data
-
Labs:
Laboratory Results
04/11/25
05:11
WBC 10.0
Hgb 13.0
Hct 38.2 L
Plt Count 190
Sodium 135
Potassium 3.8
Chloride 106
Carbon Dioxide 24
BUN 18
Creatinine 0.8
Glucose 101 H
Calcium 8.7
Total Bilirubin 1.8 H
AST 18
ALT 17
Alkaline Phosphatase 83
Vital Signs:
Vital Signs
Temp Pulse Resp BP Pulse Ox
98.1 F 107 20 150/85 94
04/11/25 07:15 04/11/25 07:15 04/11/25 03:05 04/11/25 07:15 04/11/25 03:05
I&O
04/10/25 04/11/25 04/12/25
06:59 06:59 06:59
Intake Total 2580 / 2580 1440 / 1440
Output Total 1100 / 1100 1000 / 1000
Balance 1480 / 1480 440 / 440
Review of Systems
-
History Source: Patient
Respiratory: Reports Hemoptysis
Cardiac: Reports No Symptoms
Genitourinary: Reports No Symptoms
Physical Exam
-
General: Well Developed, Well Nourished, No Apparent Distress and Comfortable
Respiratory: Crackles (right base crackles)
Cardiac: Regular Rhythm and S1/S2
GI: Soft, Nontender and Nondistended
Genito-urinary: Clear Urine
Musculoskeletal: No Clubbing, No Cyanosis and No Edema
Neuro: Awake, Alert and Oriented
Psych: Calm
[2025-04-11] MEDS: VIBRAMYCIN 100 MG PO ×2 (10:52→21:07)
[2025-04-11] MEDS: CARDIZEM CD 240 MG PO (10:52)
[2025-04-11] MEDS: MUCINEX 600 MG PO ×2 (10:52→21:07)
[2025-04-11] MEDS: ELIQUIS 5 MG PO ×2 (10:52→21:07)
[2025-04-11] MEDS: TAPAZOLE 5 MG PO (10:52)
[2025-04-11] MEDS: LOPRESSOR 25 MG PO ×2 (10:52→21:07)
[2025-04-11] MEDS: MIRALAX PO (10:53)
[2025-04-11 11:10] VITALS: BP 101/38
[2025-04-11] MEDS: DELTASONE 40 MG PO (11:59)
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
[2025-04-11 15:20] VITALS: BP 129/65
[2025-04-11] MEDS: LR IV (16:50)
[2025-04-11 20:54] VITALS: BP 139/81
[2025-04-12] VITALS: BP 148/92
[2025-04-12 03:13] VITALS: BP 143/88
[2025-04-12] MEDS: MAXIPIME 1000 MG IV ×2 (04:32→10:44)
[2025-04-12] MEDS: STERILE WATER FOR INJECTION 10 ML IV ×2 (04:33→10:44)
[2025-04-12 06:00] VITALS: BMI 26.2
[2025-04-12 07:43] VITALS: BP 146/92
[2025-04-12 08:34] LABS: Hematocrit 41.7 % (39.0-52.0); Hemoglobin 14.3 g/dL (13.0-18.0); Mean Corp Hgb Conc. 34.3 g/dL (33.0-37.0); Mean Corpuscular Volume 83.6 fL (80.0-94.0); Platelet Count 210 10^3/uL (130-400); Red Cell Dist. Width 12.3 % (11.5-14.5)
[2025-04-12 08:59] LABS: ALT (SGPT) 23 U/L (0-50); AST (SGOT) 23 U/L (17-59); Albumin 3.4 g/dl (3.5-5.0); Alkaline Phosphatase 96 U/L (38-126); Blood Urea Nitrogen 18 mg/dl (9-20); Calcium 9.3 mg/dl (8.4-10.2); Carbon Dioxide 26 mmol/L (22-30); Chloride 105 mmol/L (98-107); Estimated Creatinine Clearance 95 ml/min; Glucose 94 mg/dl (70-99); Potassium 3.7 mmol/L (3.5-5.1); Sodium 139 mmol/L (135-145); Total Protein 6.4 g/dl (6.3-8.2); eGFR > 60.00
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
[2025-04-12] MEDS: LOPRESSOR 25 MG PO (09:28)
[2025-04-12] MEDS: CARDIZEM CD 240 MG PO (09:28)
[2025-04-12] MEDS: ELIQUIS 5 MG PO (09:29)
[2025-04-12] MEDS: MIRALAX 17 GRAMS PO (09:29)
[2025-04-12] MEDS: DELTASONE 40 MG PO (09:29)
[2025-04-12] MEDS: TAPAZOLE 5 MG PO (09:29)
[2025-04-12] MEDS: MUCINEX 600 MG PO (09:29)
[2025-04-12] MEDS: VIBRAMYCIN 100 MG PO (09:29)
--- NOTE | 2025-04-12 10:12 | W.PN.CARDCBS ---
Today's Communication / Plan
-
Cardiology stable
Sign off
Arrange CT surgery and cardiology follow-up
Impression / Plan
-
Primary Electrical Technician: Dr. Ontiveros, last seen 2022
Assessment:
Presentation with R abd pain
Nausea/dry heaving, suspected med related
Paroxysmal atrial fibrillation
Severely dilated aortic root measuring 4.[address] scan 04/07/25
Hyperthyroidism
Hypertension
Hyperlipidemia
Medication noncompliance
Echo 01/24/2023: EF 50 to 55%, mild concentric LVH, mild AR, mildly dilated aortic root
Echocardiogram April 09, 2025 shows normal left ventricular size and function ejection fraction of 55 to 60%, mildly enlarged left atrium, there is mild to moderate tricuspid regurgitation with estimated pulmonary artery pressure 42 mmHg. There is
moderately dilated ascending aorta at 4.8 cm,
Compared to echocardiogram from January 28, 2023, the ascending aorta has increased in size from 4.2 cm to 4.8 cm
Plan:
Remains in rate controlled A-fib
Continue Lopressor and Cardizem
Continue Eliquis
Continue Lopressor with dilated aortic root
Continue treatment for pneumonia with primary service
Will sign off, call with questions.
Will arrange cardiology follow-up as well as elective CT surgery follow-up regarding severely dilated aortic root.
Progress Note - Electrical Technician
Subjective
Date of Service: April 12, 2025
No complaints.
Objective
Labs:
04/12/25 07:48
04/12/25 07:48
Labs
Hgb 14.3 g/dL (13.0-18.0) 04/12/25 07:48
Hct 41.7 % (39.0-52.0) 04/12/25 07:48
Plt Count 210 10^3/uL (130-400) 04/12/25 07:48
Sodium 139 mmol/L (135-145) 04/12/25 07:48
Potassium 3.7 mmol/L (3.5-5.1) 04/12/25 07:48
BUN 18 mg/dl (9-20) 04/12/25 07:48
Creatinine 0.7 mg/dL (0.7-1.3) 04/12/25 07:48
Glucose 94 mg/dl (70-99) 04/12/25 07:48
Vital Signs and I&O:
Vital Signs
Temp Pulse Resp BP Pulse Ox
97 F 81 20 146/92 94
04/12/25 07:43 04/12/25 07:43 04/12/25 07:43 04/12/25 07:43 04/12/25 07:43
Vital Signs
Temp Pulse Resp BP Pulse Ox
97 F 81 20 146/92 94
04/12/25 07:43 04/12/25 07:43 04/12/25 07:43 04/12/25 07:43 04/12/25 07:43
Intake & Output
04/10/25 04/11/25 04/12/25 04/13/25
06:59 06:59 06:59 06:59
Intake Total 2580 / 2580 1440 / 1440 480 / 480
Output Total 1100 / 1100 1000 / 1000
Balance 1480 / 1480 440 / 440 480 / 480
Physical Exam
Physical Exam
General: Well developed, well nourished in NAD.
Neck: Supple, no JVD, HJR, carotids +2 B/L, no bruits bilaterally.
Heart: Non displaced PMI, Irreg, no murmurs, No S3, S4, no rubs.
Lungs: Scattered rhonchi at the bases
Extremities: No clubbing, cyanosis or edema bilaterally.
Neuro: Grossly nonfocal, awake, alert and oriented x3.
--- NOTE | 2025-04-12 14:28 | CM ---
Patient left prior to CM assessment.
--- NOTE | 2025-04-12 15:30 | W.PN.HOSP.TC ---
Addendum entered and electronically signed by Randall Coleman MD 04/13/25 08:42:
Read, reviewed, and agree. See same day progress note for additional details. Time spent reviewing records in EMR, med rec, consults, notes, d/w consultants, nursing, family, and CM
Original Note:
Today's Communication/Plan
-
Discharged on levofloxacin and Doxycycline oral for 4 days and steroid medication to complete total of 5 days
advised to follow up with his PCP and senior cisco network engineer and charge master analyst as an OP visits
Assessment / Plan
Assessment / Plan
79yoM PMH hyperthyroidsim, paroxysmal afib, BPH s/p prostatectomy, MDD/PTSD presenting with pneumonia causing pain, nausea, vomiting.
AFVSS. Rate controlled afib, transitioned diltiazem drip to PO, pt vomited morning meds so unsure status. TSH low, T4 elevated- known hyperthyroidism, pt reports nonadherence to medications. Known afib, pt stopped taking eliquis. Now on abx.
Cardiology consulted. UC pending, sputum culture pending. Urinating appropriately denying pain. Pt reports continued pain 'under the right ribs.' Constipation- pt reports BM but smaller than usual. Leukocytosis WBC 12.3. CT: RLL pneumonia
Discussed w patient important of medication adherence. He stated he spoke with his who had a van discussion regarding his future adherence. Continue monitoring pneumonia and managing pain. Restart home medications.
AFVSS, still in afib. Pt is having continued SOB and rib pain, now having mild hemoptysis. Recently restarted on eliquis. Worsening leukocytosis and symptoms on current abx. Plan to broaden abx, sputum culture, MRSA swab to evaluate for resistant
strains.
#pneumonia- Community-acquired pneumonia suspected.
#hemoptysis Likely due to pneumonia
- Clinically improving on Cefepime/Doxycycline. WBC declining.
- RLL on CT
- Chest x-ray 04/07/2025: Right lower infiltrate noted.
Small right pleural effusion-possibly parapneumonic
Right-sided pleuritic type chest pain-likely pleuritis.
Former smoker
- Spitting up phelgm
- MRSA swab negative
-blood culture NGTD
- Sputum with normal mirta
- pulm following
CT of the chest 04/10/2025
-MODERATE RIGHT LOWER LOBE PNEUMONIA which has markedly increased since 04/07/2025.
-Mild pneumonia in the lateral segment of the right middle lobe.
-SMALL RIGHT PARAPNEUMONIC PLEURAL EFFUSION.
-Mild to moderate cardiomegaly.
-Fusiform ascending thoracic aortic aneurysm (4.9 cm diameter).
-Multinodular thyroid goiter.
-Small hiatal hernia.
#nausea and vomiting
- Concern swallowing phlegm
- Swallowing eval
- Zofran
#Hyperthyroidism
- restarted home methimazole pt was not taking
#Paroxsymal afib
- in the setting of untreated hyperthyroidism
- cardiology following
-Rate control
- Methimazole for management of hyperthyroidism
-Diltiazem 240 mg daily
-Metoprolol 25 mg twice daily
-Eliquis 5mg bid for AF
-Long-term rhythm control strategy such as ablation can be considered as an outpatient .
#Ascending TAA
-Echocardiogram finds increased size of ascending aorta ,CT of the chest recommended
-CT chest 04/10/2025 demonstrated 4.9 cm dilation of the ascending aorta
-Continue with blood pressure control and rate control of AF
-Serial TTE's or CT as OP to monitor
-May need cardiothoracic surgery follow-up at discharge
#Hypertension
- cardiology following
- currently on Diltiazem and Metoprolol
- the goal is 120/80 or less
- May need additional antihypertensive drug therapy if higher than the goal
#constipation
- methimazole started, might be associated
- continue bowel regimen
Diet -- Sodium restricted
Thromboprophylaxis -- Eliquis
CODE STATUS -- Full
Anticipated Discharge: Today
Subjective/Interval History
-
Date of Service: April 12, 2025
Patient has hemoptysis but getting less in volume comparing to the last few days. Denies cough, nausea, vomiting, fever. chills, chest pain, SOB.
Objective Data
-
Labs:
Laboratory Results
04/12/25
07:48
WBC 10.1
Hgb 14.3
Hct 41.7
Plt Count 210
Sodium 139
Potassium 3.7
Chloride 105
Carbon Dioxide 26
BUN 18
Creatinine 0.7
Glucose 94
Calcium 9.3
Total Bilirubin 1.1
AST 23
ALT 23
Alkaline Phosphatase 96
Vital Signs:
Vital Signs
Temp Pulse Resp BP Pulse Ox
98 F 81 20 146/92 99
04/12/25 11:21 04/12/25 07:43 04/12/25 11:21 04/12/25 07:43 04/12/25 11:21
I&O
04/11/25 04/12/25 04/13/25
06:59 06:59 06:59
Intake Total 1440 / 1440 480 / 480
Output Total 1000 / 1000
Balance 440 / 440 480 / 480
Review of Systems
-
History Source: Patient
Respiratory: Reports Hemoptysis
Cardiac: Reports No Symptoms
Abdomen/GI: Reports Abdominal Pain
Genitourinary: Reports No Symptoms
Neuro: Reports No Symptoms
Physical Exam
-
General: Well Developed, Well Nourished, No Apparent Distress and Comfortable
Respiratory: Crackles (right base crackles)
Cardiac: Regular Rhythm and S1/S2
GI: Soft, Nontender and Nondistended
Genito-urinary: Clear Urine
Musculoskeletal: No Clubbing, No Cyanosis and No Edema
Neuro: Awake, Alert and Oriented
Psych: Calm
--- NOTE | 2025-04-13 20:45 | W.DCSUMMARY ---
Discharge Summary
Discharge Data
Date of Admission: 04/07/25
Date of Discharge: 04/12/25
-
Pending Results: No
Additional Pending Results:
Discharging Physician:
Sumit Escudero
Disposition:
Home
Primary Care Physician:
Taz Beck
Principal Discharge Diagnosis:
Sepsis secondary to community-acquired
Atrial fibrillation with RVR
Minor hemoptysis
Ascending thoracic aortic aneurysm
Chronic Discharge Diagnosis:
Medical noncompliance-stop patient discontinue all medication about a year ago
Paroxysmal atrial fibrillation
Hypertension
BPH
Migraine headaches
Depression/PTSD
Alcohol use disorder
Hospital Course
79 y/o male presented with right sided abdominal pain. Patient reports pain started a few nights ago. He reports associated nausea and constipation. He notes pain is much worsen when he takes a deep breath. He reports cough that is productive of
thick clear mucus. He reports associated shortness of breath. He denies fevers.
While in the emergency department patient was found to have atrial fibrillation with rapid ventricular response. Patient reports he stopped all his medications over a year ago.
Patient admitted for sepsis secondary to community acquired pneumonia likely secondary to Pseudomonas involvement.
Per CT and Chest x -ray showed RLL pneumonia and right pleural effusion with compressive atelectasis Clinical improvement and resolution of leukocytosis with transition from ceftriaxone to cefepime and Doxycycline.
Legionella Urinary Antigen, Streptococcus pneumoniae Antigen and Influenza Types A & B�were negative. Urine culture negative , sputum culture showed normal respiratory mirta, COVID-19 negative. Discharged on levofloxacin and Doxycycline oral for 4
days.
Patient also found to have minor hemoptysis likely due to pneumonia, hemoglobin has been stable.
Per echo mild congestive HF exacerbation, elevated proBNP [address] of the chest demonstrated 4.9 cm dilation of the TAA. Continued with blood pressure control and rate control of AF. He needed serial TTE's or CT as OP to
monitor.
Patient found to have hyperthyroidism that he has not taking any home medication and he started on Methimazole meds at the hospital and to continue at home.
He had Paroxysmal atrial fibrillation with RVR. Secondary to noncompliance and hyperthyroid state. Started on DOAC placed of diltiazem drip and to continue oral diltiazem 240 mg daily, metoprolol tartrate 25 mg twice daily, and Eliquis.Monitored on
telemetry.
Patient discharged in stable condition and advised to monitor his blood pressure at home. Outpatient pulmonary FU recommended w/PFTs
Important Imaging Findings:
CT Abd/pel Without Iv Or Oral 04/07/2025
IMPRESSION:
Mild pneumonia in the posterior right lung base with small effusion.
The appendix is normal.
Mild colonic fecal burden. No bowel obstruction.
No obstructive uropathy.
Chest X-ray 04/07/2025
FINDINGS/IMPRESSION:
Mild opacity in the posterior basilar right lower lobe, best seen on the lateral projection, suspicious for mild pneumonia. Trace right pleural fluid.
No pneumothorax.
Stable cardiomediastinal silhouette.
Chronic degenerative changes of the spine.
CT Chest W/o Iv Contrast 04/10/2025
IMPRESSION:
1. MODERATE RIGHT LOWER LOBE PNEUMONIA which has markedly increased since 04/07/2025.
2. Mild pneumonia in the lateral segment of the right middle lobe.
3. SMALL RIGHT PARAPNEUMONIC PLEURAL EFFUSION.
4. Mild to moderate cardiomegaly.
5. Fusiform ascending thoracic aortic aneurysm (4.9 cm diameter).
6. Multinodular thyroid goiter.
7. Small hiatal hernia.
Chest X-ray 04/12/2025
IMPRESSION:
1. MODERATE RIGHT LOWER LOBE PNEUMONIA which appears to have increased since 04/07/2025.
2. Small right parapneumonic pleural effusion.
3. Mild cardiomegaly.
Echocardiogram 04/09/2025
SUMMARY
1. Normal LV size and function. Ejection fraction is 55-60% by visual assessment.
2. Right ventricular size and systolic function are within normal limits.
3. Indexed left atrial volume is mildly abnormal (35-41 ml/m2).
4. Mild aortic regurgitation.
5. Mild mitral valve regurgitation.
6. Mild to moderate tricuspid regurgitation. Estimated pulmonary artery pressure of 42 mmHg assuming a right atrial pressure of 3 mmHg.
7. Mildly dilated aortic root at the sinus of Valsalva at 3.9 cm. Moderately dilated ascending aorta at 4.8 cm.
8. Compared to a prior transthoracic echocardiogram study from 01/28/23 The ascending aorta is increased in size from 4.2 cm to 4.8 cm.
Discharge Plan
-
Patient Disposition: Home (Routine Discharge)
Discharge Diagnosis/Procedures: Sepsis secondary to community-acquired
Atrial fibrillation with RVR
Minor hemoptysis
Ascending thoracic aortic aneurysm
Condition: Fair
Diet: No restrictions
Activity: As tolerated
Driving Restrictions: No driving for 24 hours
Bathing Restrictions: None
Blood Work: Follow-up with family doctor for repeat BMP and CBC
Repeat thyroid function tests (TSH and free T4) in 4 weeks with your family doctor
Others Tests: CT chest in 1 to 2 months as outpatient
May need repeat echocardiogram, follow-up with cardiology
Activity Restrictions/Additional Instructions:
Follow-up with your family doctor within 1 week of discharge from hospital
Follow-up with cardiology and pulmonology within 1 month of discharge from hospital
Instructions: Checking your blood pressure at home, Blood pressure measurement
Referrals:
Walter Shay MD [Active, Pulmonary Medicine] - in two to four weeks
Taz Parrish MD [Family Provider, Family Practice]
Chao Hagan MD [Active, Cardiology] - in one to two weeks
Additional Discharge Medication Instructions: Take diltiazem 240 mg every morning and metoprolol tartrate 25 mg once in the morning and once in the evening for your heart rate
Take Eliquis 5 mg twice daily to reduce risks of stroke in the context of your atrial fibrillation
Continue levofloxacin once daily and doxycycline twice daily for 4 more days after discharge
(DME) blood pressure cuff
Prescriptions:
New
diltiazem HCl 240 mg Capsule,Extended Release 24hr
240 mg PO DAILY 30 Days Qty: 30 0RF
Eliquis 5 mg Tablet
5 mg PO BID 30 Days Qty: 60 0RF
metoprolol tartrate 25 mg Tablet
25 mg PO BID 30 Days Qty: 60 0RF
methimazole 5 mg Tablet
5 mg PO DAILY 30 Days Qty: 30 0RF
doxycycline hyclate 100 mg Capsule
100 mg PO Q12 4 Days Qty: 8 0RF
levofloxacin 750 mg tablet
750 mg PO DAILY 4 Days Qty: 4 0RF
(DME) blood pressure monitor Kit
See Rx Instructions .Route Qty: 1 0RF
Rx Instructions:
As directed
Discharge Orders:
Discharge Patient (As Directed); Ordered 04/12/25
Ordered By: Sumit Nicole
Discharge Date and Time
Discharge Date/Time: 04/12/25 13:29
Print Language: PARAGUAYAN
== END 2025-04-12 13:29 | disposition home or self-care (01) | DRG 871 ==
LOC: 4 WEST ACU 22:49
PROVIDERS: Emergency Medicine; Physician Assistant Medical; Specialist Research Data Abstracter/Coder; ADMITTING PHYSICIAN Internal Medicine; ATTENDING PHYSICIAN Hospitalist; CONSULT PHYSICIAN Internal Medicine Critical Care Medicine; EMERGENCY PHYSICIAN Emergency Medicine; FAMILY PHYSICIAN Family Medicine; OTHER PHYSICIAN Internal Medicine Cardiovascular Disease
DX: A41.9 Sepsis, unspecified organism (principal); J18.9 Pneumonia, unspecified organism; R04.2 Hemoptysis; Z87.891 Personal history of nicotine dependence; I48.0 Paroxysmal atrial fibrillation; Z79.01 Long term (current) use of anticoagulants; Z91.148 Patient's other noncompliance with medication regimen for other reason; E05.90 Thyrotoxicosis, unspecified without thyrotoxic crisis or storm; I10 Essential (primary) hypertension; K59.00 Constipation, unspecified; Z11.52 Encounter for screening for COVID-19; E03.9 Hypothyroidism, unspecified; F10.10 Alcohol abuse, uncomplicated; F32.A Depression, unspecified; F43.10 Post-traumatic stress disorder, unspecified; G43.909 Migraine, unspecified, not intractable, without status migrainosus; I77.810 Thoracic aortic ectasia; N40.0 Benign prostatic hyperplasia without lower urinary tract symptoms
CPT/HCPCS: 71045; 71046; 71250; 74176; 80048; 80053; 81003; 81015; 83605; 83690; 83735; 83880; 84145; 84439; 84443; 85025; 85027; 87040; 87070; 87086; 87205; 87449; 87502; 87811; 87899; 92610; 93005; 93306; 96374; 96376; 99291

== ENCOUNTER → 2025-05-24 10:30 | Outpatient (REF) | payer OTHER, SELFPAY | LOC: REG 10:30 | PROVIDERS: ATTENDING PHYSICIAN Nurse Practitioner Adult Health; FAMILY PHYSICIAN Family Medicine | DX: J18.9 Pneumonia, unspecified organism (principal) | CPT/HCPCS: 71046 ==